=== PATIENT | female | born 1965 ===

== ENCOUNTER 2016-12-11 00:40 | Emergency (ER) | payer SELFPAY ==
[2016-12-11] MEDS ORDERED: Bacitracin 500 Units/gm Oint Foilpak UD TOP ONE (02:02)
[2016-12-11] MEDS ORDERED: Bacitracin 500 Units/gm Oint Foilpak UD ONE (02:11)
--- NOTE | 2016-12-11 02:16 | C.PDOC ---
History Of Present Illness 51 yo female accompanied by her daughter c/o right ankle pain and swelling x 5 days. Pt notes that she was wearing sandals and the clasp rubbed on her ankle, since then there has been redness and swelling. No fever. Pt is "prediabetic". Has lived her for 7 months, no PMD. Not up to date on tetanus. No trauma or change in sensation. Time Seen by Provider: 12/11/16 01:04 Chief Complaint (Nursing): Abnormal Skin Integrity History Per: Patient, Family History/Exam Limitations: no limitations Onset/Duration Of Symptoms: Days Current Symptoms Are (Timing): Still Present Past Medical History Vital Signs: Last Vital Signs Temp 98.2 F 12/11/16 00:54 Pulse 72 12/11/16 00:54 Resp 18 12/11/16 00:54 BP 93/74 L 12/11/16 00:54 Pulse Ox 100 12/11/16 02:17 - Medical History PMH: Hypothyroidism Family History: States: Unknown Family Hx - Social History Hx Alcohol Use: No Hx Substance Use: No - Immunization History Hx Tetanus Toxoid Vaccination: No Hx Influenza Vaccination: No Hx Pneumococcal Vaccination: No Review Of Systems Except As Marked, All Systems Reviewed And Found Negative. Physical Exam - Physical Exam Appears: Well, Non-toxic, No Acute Distress Skin: Warm, Dry, Other (Right lateral ankle: (+) 5 x 5 cm area of erythema with central 0.5 cm open wound , dry, no discharge. No fluctuance. ) Head: Atraumatic, Normacephalic Eye(s): bilateral: Normal Inspection, EOMI Nose: Normal Neck: Normal, Normal ROM, Supple Chest: Symmetrical Respiratory: No Accessory Muscle Use Extremity: Normal ROM, Tenderness (Lateral ankle), No Pedal Edema, No Calf Tenderness, Capillary Refill (<2 sec), Swelling Pulses: Left Dorsalis Pedis: Normal, Right Dorsalis Pedis: Normal Neurological/Psych: Oriented x3, Normal Speech, Normal Motor, Normal Sensation Gait: Steady ED Course And Treatment O2 Sat by Pulse Oximetry: 100 Progress Note: Wound was cleansed and dress by RN. Area of erythema was circled. Pt was instructed outpt abx trail and return to ER if symptoms persist or worsen. Disposition - Disposition Referrals: [facility] [Outside] Disposition: HOME/ ROUTINE Disposition Time: 02:15 Condition: STABLE Additional Instructions: Wound check in 2 days. If area of redness increases or fever starts, return to ER right away. Prescriptions: Clindamycin [Cleocin] 300 mg PO Q6 #28 cap Instructions: Cellulitis (ED) - Clinical Impression Clinical Impression: Cellulitis
[2016-12-11] MEDS ORDERED: Tetanus/Diphtheria Toxoids 0.5 ml Syringe IM ONE (02:35)
[2016-12-11 03:10] VITALS: BP 132/70; PULSE 75; RESP 20; TEMP 97.6; O2SAT 99
== END 2016-12-11 03:05 | disposition home or self-care (01) ==
LOC: C.ER 00:40 → SUPCPDRO 00:40 → C.ER 03:05
DX: L03.115 Cellulitis of right lower limb (principal)